=== PATIENT | female | born 1970 | race Two or more races ===

== ENCOUNTER 2021-03-29 08:59 | Day surgery (SDC) | payer OTHER | END 2021-03-29 13:55 | disposition home or self-care (01) | LOC: AMB-ENDOS 08:59 | PROVIDERS: ATTEND Colon & Rectal Surgery | DX: C20 Malignant neoplasm of rectum (principal); K64.0 First degree hemorrhoids; Z20.822 Contact with and (suspected) exposure to COVID-19 ==

== ENCOUNTER 2021-07-04 07:45 | Inpatient (IN) | payer OTHER ==
[~2021-07-04] VITALS: Ht 157.5 cm; Wt 56.7 kg
[2021-07-04] MEDS ORDERED: NORVASC5 MG PO (09:12)
[2021-07-04] MEDS ORDERED: COZAAR100 MG PO (09:12)
[2021-07-04] MEDS ORDERED: HORIZANT300 MG PO (09:13)
[2021-07-04] MEDS ORDERED: PEPCID PO (09:13)
[2021-07-09] MEDS ORDERED: PEPCID40 MG PO (13:05)
== END 2021-07-12 13:56 | disposition home or self-care (01) | DRG 331 ==
LOC: SURH 07-09 07:45 → O/R 07-09 11:43 → SURH 07-09 18:58
PROVIDERS: ADMIT Colon & Rectal Surgery; ATTEND Colon & Rectal Surgery
PROC: 0D1B4Z4 Bypass Ileum to Cutaneous, Percutaneous Endoscopic Approach (ICD-10-PCS; principal; 2021-07-09 21:45)
DX: C20 Malignant neoplasm of rectum (principal); I10 Essential (primary) hypertension; Z85.048 Personal history of other malignant neoplasm of rectum, rectosigmoid junction, and anus

== ENCOUNTER 2022-07-21 22:23 | Inpatient (IN) | payer OTHER ==
[~2022-07-21] VITALS: Ht 157.5 cm; Wt 59.0 kg
[~2022-07-21 22:23] MED LIST: COZAAR100 MG PO; HORIZANT300 MG PO; NORVASC5 MG PO; PEPCID PO; PEPCID40 MG PO
== END 2022-08-01 13:10 | disposition home or self-care (01) | DRG 389 ==
LOC: ER 22:23 → SEC-K 07-22 10:33 → MEDI 07-22 10:33
PROVIDERS: ADMIT Colon & Rectal Surgery; ATTEND Colon & Rectal Surgery
PROC: BW21YZZ Computerized Tomography (CT Scan) of Abdomen and Pelvis using Other Contrast (ICD-10-PCS; principal; 2022-07-24)
DX: K56.609 Unspecified intestinal obstruction, unspecified as to partial versus complete obstruction (principal); C20 Malignant neoplasm of rectum; K52.9 Noninfective gastroenteritis and colitis, unspecified; Z85.048 Personal history of other malignant neoplasm of rectum, rectosigmoid junction, and anus; Z08 Encounter for follow-up examination after completed treatment for malignant neoplasm; I10 Essential (primary) hypertension

== ENCOUNTER 2022-12-14 09:33 | Inpatient (IN) | payer OTHER ==
[~2022-12-14] VITALS: Ht 157.5 cm; Wt 53.5 kg
[~2022-12-14 09:33] MED LIST changes: +INTESTINEX680 M1 PO; +LEVSIN/SL0.125 MG SL; +PEPCID AC20 MG PO
--- NOTE | 2022-12-14 10:00 | NUR ---
SE RECIBE PTE ALERTA Y ORIENTADA X3. REFIERE SHARM[facility] PRESENTADO 10 EPISODIOS DE VOMITO DESDE QUE SALIO
--- NOTE | 2022-12-14 10:59 | NUR ---
RADHA.EDISON ORIENTA A PTE SOBRE TX MEDICO ORDENADOP POR . SE REALIZA LUIS DE MUESTRAS ELIUD ORDEN EMDICA Y BAJO MEDIDAS ASEPTICAS. SE REALIZA VENOPUNCION PATENTE BAJANDO IV FLUIDS POR REGUGULADOR. SE ENTREGA ENVASE DE U/A, PENDIENTE A ENTREGAR/.
--- NOTE | 2022-12-14 13:33 | NUR ---
SE NOTIFICA ESTUDIO PENDIENTE.
--- NOTE | 2022-12-14 18:22 | NUR ---
PTE RE-EVALUADA POR . SE ORIENTA SOBRE ORDEN DE TX REFIERE COMPRENDER. SE ADMINISTRA MEDICAMENTO, BAJO MEDIDAS ASEPTICAS. SE INSERTA NTG BAJO MEDIDAS ASEPTICAS, ELIUD ORDEN MEDICA. PTE TOELRA PROCEDIMIENTO. SE AMOR PTE EN CAMA NIVEL MAS BAJO CON BARANDAS ELEAVDAS Y FRENOS COLOCADOS PRO SEGURIDAD.
[2022-12-30] MEDS ORDERED: DICY20TA PO (08:23)
[2022-12-30] MEDS ORDERED: CHOLESTYRAMINE P4 GM PO (08:25)
[2022-12-30] MEDS ORDERED: INTESTINEX680 M1 PO (08:25)
[2022-12-30] MEDS ORDERED: ONDANSETRON4 MG/2 M1 PO (08:26)
[2022-12-30] MEDS ORDERED: PROTEINEX-18 LI30 ML PO (08:27)
== END 2022-12-30 18:42 | disposition home or self-care (01) | DRG 388 ==
LOC: ER 09:33 → ICU-2 19:22 → ICU 19:22 → SURH 12-26 21:14
PROVIDERS: ADMIT Colon & Rectal Surgery; ATTEND Colon & Rectal Surgery
PROC: BW21ZZZ Computerized Tomography (CT Scan) of Abdomen and Pelvis (ICD-10-PCS; principal; 2022-12-14)
PROC: 02HV33Z Insertion of Infusion Device into Superior Vena Cava, Percutaneous Approach (ICD-10-PCS; 2022-12-15)
PROC: BR39ZZZ Magnetic Resonance Imaging (MRI) of Lumbar Spine (ICD-10-PCS; 2022-12-16)
PROC: B54DZZZ Ultrasonography of Bilateral Lower Extremity Veins (ICD-10-PCS; 2022-12-16)
PROC: 30233N1 Transfusion of Nonautologous Red Blood Cells into Peripheral Vein, Percutaneous Approach (ICD-10-PCS; 2022-12-16)
DX: K56.699 Other intestinal obstruction unspecified as to partial versus complete obstruction (principal); A41.9 Sepsis, unspecified organism; C20 Malignant neoplasm of rectum; C78.6 Secondary malignant neoplasm of retroperitoneum and peritoneum; N17.9 Acute kidney failure, unspecified; N13.30 Unspecified hydronephrosis; E87.6 Hypokalemia; E86.0 Dehydration; D64.9 Anemia, unspecified; I10 Essential (primary) hypertension
CPT/HCPCS: 72158

== ENCOUNTER 2023-01-07 11:24 | Inpatient (IN) | payer OTHER ==
[~2023-01-07] VITALS: Ht 157.5 cm; Wt 51.3 kg
[~2023-01-07 11:24] MED LIST changes: +CHOLESTYRAMINE P4 GM PO; +DICY20TA PO; +ONDANSETRON4 MG/2 M1 PO; +PROTEINEX-18 LI30 ML PO
== END 2023-01-24 11:00 | disposition home or self-care (01) | DRG 871 ==
LOC: ER 11:24 → SURH 18:40 → ICU 18:40 → SEC-K 18:40 → SURH 01-08 03:23 → SEC-K 01-08 04:23 → SURH 01-08 10:16 → SEC-K 01-08 13:44 → ICU-2 01-08 15:28 → ICU 01-13 05:44 → SURH 01-15 18:33
PROVIDERS: Colon & Rectal Surgery; General Practice; Internal Medicine Infectious Disease; Surgery; ADMIT Surgery; ATTEND Surgery
PROC: 0D9670Z Drainage of Stomach with Drainage Device, Via Natural or Artificial Opening (ICD-10-PCS; 2023-01-07)
PROC: 8E0ZXY6 Isolation (ICD-10-PCS; principal; 2023-01-08)
PROC: 3E0436Z Introduction of Nutritional Substance into Central Vein, Percutaneous Approach (ICD-10-PCS; 2023-01-08)
PROC: B246ZZZ Ultrasonography of Right and Left Heart (ICD-10-PCS; 2023-01-11)
PROC: B54DZZZ Ultrasonography of Bilateral Lower Extremity Veins (ICD-10-PCS; 2023-01-11)
PROC: 30233N1 Transfusion of Nonautologous Red Blood Cells into Peripheral Vein, Percutaneous Approach (ICD-10-PCS; 2023-01-12)
PROC: 3E0F7SF Introduction of Other Gas into Respiratory Tract, Via Natural or Artificial Opening (ICD-10-PCS; 2023-01-14)
PROC: 0JPV3WZ Removal of Totally Implantable Vascular Access Device from Upper Extremity Subcutaneous Tissue and Fascia, Percutaneous Approach (ICD-10-PCS; 2023-01-14)
PROC: 0DH63UZ Insertion of Feeding Device into Stomach, Percutaneous Approach (ICD-10-PCS; 2023-01-14)
DX: A41.1 Sepsis due to other specified staphylococcus (principal); R65.21 Severe sepsis with septic shock; K56.50 Intestinal adhesions [bands], unspecified as to partial versus complete obstruction; C78.5 Secondary malignant neoplasm of large intestine and rectum; C78.4 Secondary malignant neoplasm of small intestine; C80.0 Disseminated malignant neoplasm, unspecified; D68.8 Other specified coagulation defects; N39.0 Urinary tract infection, site not specified; T82.7XXA Infection and inflammatory reaction due to other cardiac and vascular devices, implants and grafts, initial encounter; A41.59 Other Gram-negative sepsis; A41.89 Other specified sepsis; D63.0 Anemia in neoplastic disease; D53.0 Protein deficiency anemia; D75.838 Other thrombocytosis; E88.09 Other disorders of plasma-protein metabolism, not elsewhere classified; E87.6 Hypokalemia; Z66 Do not resuscitate; Z92.21 Personal history of antineoplastic chemotherapy